=== PATIENT | female | born 1935 | race Caucasian/White ===

== ENCOUNTER 2016-05-14 23:49 | Observation (INO) ==
[2016-05-15] MEDS ORDERED: Acetaminophen 325 MG TABLET PO PRN (02:32)
[2016-05-15] MEDS ORDERED: Naloxone 0.4 MG/ML INJ IVP PRN (02:32)
[2016-05-15] MEDS ORDERED: *HR* Morphine 2 MG/ML SYRINGE IVP PRN (02:32)
[2016-05-15] MEDS ORDERED: Ondansetron 4 MG/2 ML VIAL IVP PRN (02:32)
[2016-05-15] MEDS ORDERED: Acetaminophen IV 1,000 MG/100 ML INFUS..BTL IVPB STA (02:42)
[2016-05-15] MEDS ORDERED: Ketorolac 15 MG/ML VIAL IVP STA (02:42)
--- NOTE | 2016-05-15 02:48 | Internal Med History&Physical ---
Date of Encounter: 05/15/16 Time of Encounter: 02:30 Assessment and Plan (1) Fall (on) (from) other stairs and steps, initial encounter Current visit: Yes Status: Acute . (2) Pelvis fracture Current visit: Yes Status: Acute . Qualifiers: Encounter type: initial encounter Pelvic bone location: unspecified part of pelvis Fracture type: closed Fracture alignment: nondisplaced Qualified Code(s): S32.9XXA - Fracture of unspecified parts of lumbosacral spine and pelvis, initial encounter for closed fracture Internal Medicine - H&P: HPI Chief complaint: Fall; pelvis fracture Admitted From: Hospital to Hospital Transfer (Hospital transfer: [facility] ED) Plans for Post Hospital Care: Home History of present illness: Ms. Alonzo is a 80 year old female with medical history noteworthy of hypertension, hypothyroidism, osteoarthritis, osteopenia, depression and anxiety , obesity, nonsmoker is admitted as a hospital transfer [facility] emergency department where she presented following a mechanical fall onto bottom step of metal bleachers landing on left hip against a railing with secondary nondisplaced pelvis fracture. The patient suffered no head or neck injury. There was no loss of consciousness. He misstepped landing onto her left hip. Immediately felt pain and discomfort to the left hip area. Described this as a sharp 10/10 severity. She was able to stand with assistance and weight-bear although uncomfortable and attempted ambulation and no pain while at rest. Screening studies included a negative routine urinalysis. White blood cell count 14 with increase in neutrophils. Hemoglobin 13.5 platelets 181,000. Vital signs Patient Afebrile at 97.2 Degrees Fahrenheit. Pulse Oximetry 97% on Room Air. BP 119-163/64-74 MmHg. Pulse 59-68. Respirations 16-20. BMI 30.47. Pelvis X-Ray Series Demonstrated Fractures of the Left Superior and Inferior Pelvic Ramus and Body. No Additional Fractures Identified. SI Joint Anatomically Aligned. Hip Joints Anatomically Aligned. Chondrocalcinosis Noted Involving the Symphysis and Left Hip Labrum. X-Ray Left Femur Demonstrated No Acute Osseous Abnormality or Dislocation. 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 Tricompartmental Osteoarthritis of the Knee. Orthopedic Surgery Notified by [facility] ED Attending of Transfer and Acceptance given. Workup and treatment will proceed comprehensively. The patient was visited and interviewed and examined. Cumulative laboratory and radiographic data base will be considered and discussed. Pertinent ancillary medical records including ECW and PCI documentation when available was reviewed and considered. Given the patient's presenting concerns, past medical history, clinical findings and symptoms, she is admitted at this time will undergo further evaluation and disposition. Orders were written as per Computerized physician manifest/order organizer print orders system.......................................................................... .................... Consultative opinion will be sought as clinical circumstances justify. Pain management needs will be addressed. Laboratory /radiographic data base will be updated as appropriate. Studies include: Cultures of urine, UA, pt/inr, aptt, cardiac injury panel, BNP, metabolic and hematologic panel, magnesium, phosphorus, ionized calcium, thyroid panel, lipid profile, A1c, C-peptide, CRP, sedimentation rate, blood gas , lactic acid, serologies, etc. Precautions: Aspiration, fall, delirium protocol/surveillance initiated. Telemetry with continuous hemodynamic monitoring and pulse oximetry initiated. Empiric antibiotic coverage: Intravenous Rocephin pending culture data. Special studies: chest x-ray, telemetry, EKG. Pulmonary toilet: Incentive spirometry. PRN: aerosol bronchodilator, mucolytic, antitussive, supplemental oxygen. Corticosteroid therapyPRN. CPAP/BiPAP supplemental oxygenPRN. Aerosol Mucomyst therapyPRN. Fluid and electrolyte repletion efforts will proceed. Careful attention to fluid balance and renal recovery will be emphasized. Avoidance of nephrotoxic exposure and adverse drug drug interaction in the setting of impaired renal function will be monitored closely. Acute coronary syndrome protocol/surveillance initiated. DVT and PUD prophylaxis initiated: PPI therapy, intermittent pneumatic cuffs. Subcutaneous heparin/Lovenox. Early ambulation will be encouraged. Immunization updates recommended. Influenza and pneumococcal vaccinations as part of ongoing preventative healthcare recommendations strongly recommended. Smoke cessation counseling briefly addressed. Patient is a nonsmoker. Advanced care directive discussion briefly addressed. Patient does not declare any healthcare restrictions at this time. Cardiovascular risk appraisal and cardiovascular risk reduction efforts will be emphasized. Physical /occupational therapy consulted to evaluate patient's functional capacity and progress mobility if her circumstances permit. Nutrition/dietary education counseling may be considered as circumstances justify. Outpatient medication schedules will be reviewed, confirmed and facilitated as appropriate. Reconciliation of home treatments including adjustments, substitutions and reintroduction into the treatment regimen will address necessary maintenance therapies for chronic pre-existing medical conditions. Plan of care has been reviewed and discussed in detail with the patient. Questions addressed. Hospital course dictated by clinical findings, treatment response and potential consultative interventions. Patient is a risk for further acute clinical decline due to her age, chief complaints and comorbid conditions. Condition is serious. Prognosis is guarded. CODE STATUS is full. Past Med Surg Social Fam HX - Past Medical History Source: old records reviewed Medical history: arthritis, hypertension, osteoporosis, thyroid disease, other Psychiatric history: no psych history - Past Surgical History Surgical History: appendectomy, cholecystectomy, hysterectomy, knee replacement , orthopedic, other (carpal tunnel repair.) - Social History Smoking Status: Never smoker Smokeless Tobacco Status: No Alcohol use: none Drug use: none Occupational status: retired Current living situation: Home, With Family Activity Level: Independent ambulation, Mostly sedentary Recent Out of Country Travel Within the Last 8 Weeks: No Exposure or Possible Exposure to Illness During Travel: No - Family History Sister Hx Family Cardiac Disorders: No Hx Family Respiratory Disorders: No Hx Family Cancer: Yes Hx Family GI Disorders: No Hx Family Genitourinary Disorders: No Hx Family Endocrine Disorder: No Hx Family Musculoskeletal Disorders: No Hx Family Neuromuscular Disorders: No Hx Family Neurologic Disorders: No Hx Family HEENT Disorders: No Hx Family Autoimmune Disorders: No Hx Family Reproductive Disorders: No Hx Family Psychosocial Disorders: No Hx Family Medical Disorders: No Internal Medicine - H&P: Meds Aspirin 325 mg PO DAILY 05/15/16 [History] Calcium Carbonate [Calcium] 600 mg PO DAILY 05/15/16 [History] Cholecalciferol (Vitamin D3) [Vitamin D] 1,000 unit PO 05/15/16 [History] Levothyroxine [Synthroid] 25 mcg PO DAILY 05/15/16 [History] Metoprolol [Lopressor] 12.5 mg PO BID 05/15/16 [History] Paroxetine HCl [Paxil] 20 mg PO DAILY 05/15/16 [History] Triamterene/HCTZ 75/50mg [Maxzide] 1 tab PO DAILY 05/15/16 [History] Allergies allopurinol Adverse Reaction (Verified 05/15/16 02:19) Hives azithromycin Adverse Reaction (Verified 05/15/16 02:19) Cramping of the Muscles All Systems PM: A 10-system review of systems was performed and is negative for pertinent findings except as documented above in the HPI. - Constitutional Constitutional: as per HPI, no chills, no fever(s), no night sweats - EENT Eyes: as per HPI, no change in vision, no discharge, no pain, no photophobia Ears: as per HPI, no ear discharge, no ear pain, no tinnitus Nose, mouth and throat: as per HPI, no dysphagia, no nasal discharge, no neck pain, no sore throat - Cardiovascular Cardiovascular ROS IM: as per HPI, no chest pain, no diaphoresis, no dyspnea, no lightheadedness, no palpitations, no syncope - Respiratory Respiratory: as per HPI, no cough, no dyspnea, no wheezing, no excessive phlegm production - Gastrointestinal Gastrointestinal: as per HPI, no abdominal pain, no diarrhea, no hematemesis, no hematochezia, no melena, no nausea, no vomiting - Genitourinary Genitourinary: as per HPI, no change in urinary stream, no dysuria, no flank pain, no hematuria - Musculoskeletal Musculoskeletal ROS IM: as per HPI, arthralgias, limited range of motion, other , no neck pain, no numbness, no tingling - Integumentary Integumentary IM: as per HPI, no rash, no unusual bruising - Neurological Neurological ROS: as per HPI, no confusion, no convulsions, no focal weakness, no numbness, no tingling, no tremor(s) - Psychiatric Psychiatric: as per HPI - Endocrine Endocrine IM: as per HPI - Hematologic/Lymphatic Hematologic/Lymphatic: as per HPI, no easy bruising - Allergic/Immunologic Allergic/Immunologic: as per HPI - Constitutional Vitals: Temp Pulse Resp BP Pulse Ox 98.0 F 60 17 125/71 95 05/15/16 01:53 05/15/16 01:53 05/15/16 01:53 05/15/16 01:53 05/15/16 01:53 Vital Signs Temp Pulse Resp BP Pulse Ox 05/15/16 01:53 98.0 F 60 17 125/71 95 Intake and Output 05/14/16 05/14/16 05/15/16 15:59 23:59 07:59 Other: Weight 77.111 kg Patient Weight 05/15/16 23:59 Weight 77.111 kg Allergies Allergy/AdvReac Type Severity Reaction Status Date / Time allopurinol AdvReac Hives Verified 05/15/16 02:19 azithromycin AdvReac Cramping Verified 05/15/16 02:19 of the Muscles General appearance: Present: cooperative, mild distress, A&O X 3, obese, answers questions appropriately - Head Head exam: Present: atraumatic, normocephalic - Eye Eye exam: Present: EOMI, PERRL, conjuntiva pink, sclera anicteric Pupils: Present: normal accommodation, PERRL - ENT ENT exam: Present: mucous membranes moist, normal oropharynx - Neck Neck exam general surgery: Present: full ROM, supple, trachea midline. Absent: lymphadenopathy - Respiratory Respiratory exam: Present: decreased breath sounds, CTAB. Absent: accessory muscle use, rales, rhonchi, wheezes - Cardiovascular Cardiovascular exam: Present: distant heart sounds, RRR, +S1, +S2. Absent: diastolic murmur, gallop, rubs, systolic murmur - GI/Abdominal GI/Abdominal exam: Present: normal bowel sounds, soft, no peritoneal signs. Absent: distended, tenderness - Extremities Exam Extremities exam: Present: warm, radial pulses palpable and symetrical. Absent : calf tenderness, cyanotic, full ROM, pedal edema - Expanded Lower Extremities Exam Hip exam: Present: pelvic stability, swelling, tenderness. Absent: full ROM Neuro vascular tendon exam: Present: no vascular compromise, significant pain with passive ROM of distal joint. Absent: motor deficit, pulse deficit, sensory deficit Gait: Present: not tested/not observed - Neurological Exam Neurological exam: Present: alert, CN II-XII intact, oriented X3, no focal deficits. Absent: pronater drift, facial droop, speech deficit - Psychiatric Psychiatric exam: Present: normal affect, normal mood - Skin Skin exam: Present: dry, intact, warm
[2016-05-15] MEDS: Ringers Solution, Lactated 1,000 ML IVC SCH ×2 (03:09→13:40)
[2016-05-15] MEDS ORDERED: Benzonatate 100 MG CAPSULE PO PRN (03:15)
[2016-05-15] MEDS ORDERED: Ipratropium/Albuterol Neb 3 ML IH PRN (03:15)
[2016-05-15] MEDS ORDERED: Chloraseptic Spray 177 ML BOTTLE MM PRN (03:15)
[2016-05-15] MEDS: *HR* Enoxaparin 40 MG/0.4 ML SYRINGE SQ SCH (06:16)
[2016-05-15 06:31] LABS: Basophils % 0.4 %; Eosinophils # 0.1 K/mcL (0.0-0.6); Eosinophils % 0.9 %; Hematocrit 35.3 % (35.3-44.9); Hemoglobin 12.2 g/dL (11.5-15.4); Immature Granulocytes % 0.5 % (0-4); Lymphocytes # 1.2 K/mcL (0.6-4.6); Lymphocytes % 14.9 %; Mean Corpuscular HGB Conc 34.6 g/dL (31.6-35.5); Mean Corpuscular Hemoglobin 32.4 pg (28.0-33.3); Mean Corpuscular Volume 93.9 fL (83.0-100.0); Mean Platelet Volume 11.8 fL (9.4-12.4); Monocytes # 0.7 K/mcL (0.0-1.3); Monocytes % 8.4 %; Neutrophils # 5.9 K/mcL (1.6-8.9); Platelet Count 176 K/mcL (140-400); Red Blood Count 3.76 M/mcL (3.82-4.97); Red Cell Distribution Width 12.7 % (11.5-14.5); Segmented Neutrophils % 74.9 %
[2016-05-15 06:37] LABS: INR 1.2; Prothrombin Time 13.4 Seconds (9.4-12.1)
[2016-05-15 06:39] LABS: Activated Partial Thrombo Time 31.7 Seconds (26.0-36.0)
[2016-05-15 06:48] LABS: Ionized Calcium 1.13 mmol/L (1.15-1.35); VBG HCO3 26.6 mEq/L (21-27); VBG PH 7.37 pH Units (7.32-7.42)
[2016-05-15 06:53] LABS: Hemoglobin A1C 5.4 %
[2016-05-15 06:54] LABS: Albumin 3.4 g/dL (3.5-5.0); Albumin/Globulin Ratio 1.1 (1.1-2.2); Bilirubin,Total 0.8 mg/dL (0.2-1.2); Calcium 8.9 mg/dL (8.6-10.8); Globulin 3.2 g/dL (2.4-3.5); Magnesium 1.9 mg/dL (1.6-2.6); Phosphorous 3.6 mg/dL (2.3-4.7); Potassium 3.7 mEq/L (3.5-4.5); Total Protein 6.6 g/dL (6.0-8.3); Uric Acid 8.9 mg/dL (2.6-6.0)
[2016-05-15 07:07] LABS: Thyroid Stimulating Hormone 4.482 mcIU/mL (0.350-4.840)
--- NOTE | 2016-05-15 07:59 | Orthopedic Consult Note ---
Date of Encounter: 05/15/16 Time of Encounter: 07:45 Assessment and Plan (1) Pelvis fracture Current Visit: Yes Status: Acute Patient is doing well; pain controlled in bed. Plan is to proceed with non-surgical management. She is WBAT with assistance. Will start PT/OT DVT prophylaxis with foot pumps. She has requested f/up in [facility] - set up appt and faxed to the floor 1 week f/up Continue with hip precautions; using walker Plan discussed and reviewed by . Qualifiers: Encounter type: initial encounter Pelvic bone location: pubis Fracture type: closed Fracture alignment: nondisplaced Laterality: left Qualified Code(s): S32.502A - Unspecified fracture of left pubis, initial encounter for closed fracture (2) Fall (on) (from) other stairs and steps, initial encounter Current Visit: Yes Status: Acute (3) Essential hypertension Current Visit: Yes Status: Chronic (4) Hypothyroidism Current Visit: Yes Status: Chronic Qualifiers: Hypothyroidism type: other Qualified Code(s): E03.8 - Other specified hypothyroidism (5) Chronic kidney disease, stage III (moderate) Current Visit: Yes Status: Suspected History of Present Illness Chief complaint: Fall - Pelvic Fracture HPI: Ms. Alonzo is a 80 year old female, medical history hypertension, hypothyroidism , osteoarthritis, osteopenia, depression and anxiety, obesity, nonsmoker is admitted as a hospital transfer [facility] She had a mechanical fall onto bottom step of metal bleachers landing on left hip against a railing - immediate hip pain, 10/10 She was able to WB, but with difficulty. No pain at rest. The patient suffered no head or neck injury. Denies loss of consciousness. Reviewed by : Pelvis X-Ray Series Demonstrated Fractures of the Left Superior and Inferior Pelvic Ramus and Body. No Additional Fractures Identified. SI Joint Anatomically Aligned. Hip Joints Anatomically Aligned. Chondrocalcinosis Noted Involving the Symphysis and Left Hip Labrum. X-Ray Left Femur Demonstrated No Acute Osseous Abnormality or Dislocation. 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 Tricompartmental Osteoarthritis of the Knee. Orthopedic Surgery Notified by [facility] Past Med Surg Social Fam HX - Past Medical History Medical history: arthritis, hypertension, osteoporosis, thyroid disease, other Psychiatric history: no psych history - Past Surgical History Surgical History: appendectomy, cholecystectomy, hysterectomy, knee replacement , orthopedic, other (carpal tunnel repair.) - Social History Smoking Status: Never smoker Smokeless Tobacco Status: No Alcohol use: none Drug use: none - Family History Sister Hx Family Cardiac Disorders: No Hx Family Respiratory Disorders: No Hx Family Cancer: Yes Hx Family GI Disorders: No Hx Family Genitourinary Disorders: No Hx Family Endocrine Disorder: No Hx Family Musculoskeletal Disorders: No Hx Family Neuromuscular Disorders: No Hx Family Neurologic Disorders: No Hx Family HEENT Disorders: No Hx Family Autoimmune Disorders: No Hx Family Reproductive Disorders: No Hx Family Psychosocial Disorders: No Hx Family Medical Disorders: No Medications and Allergies Aspirin 325 mg PO DAILY 05/15/16 [History] Calcium Carbonate [Calcium] 600 mg PO DAILY 05/15/16 [History] Cholecalciferol (Vitamin D3) [Vitamin D] 1,000 unit PO DAILY 05/15/16 [History] Levothyroxine [Synthroid] 25 mcg PO DAILY 05/15/16 [History] Metoprolol [Lopressor] 12.5 mg PO BID 05/15/16 [History] Paroxetine HCl [Paxil] 20 mg PO DAILY 05/15/16 [History] Triamterene/HCTZ 75/50mg [Maxzide] 0.5 tab PO DAILY 05/15/16 [History] Allergies allopurinol Adverse Reaction (Verified 05/15/16 07:46) Hives azithromycin Adverse Reaction (Verified 05/15/16 07:46) Cramping of the Muscles All Systems Reviewed: A 10-system review of systems was performed and is negative for pertinent findings except as documented above in the HPI. - Constitutional Constitutional: as per HPI - Cardiovascular Cardiovascular: no chest pain, no syncope - Respiratory Respiratory: no cough - Musculoskeletal Musculoskeletal: as per HPI, radiating pain into limb, no abnormal gait, no numbness, no tingling Physical Exam - Constitutional Vitals: Temp Pulse Resp BP Pulse Ox 98.3 F 64 16 128/73 95 05/15/16 06:32 05/15/16 06:32 05/15/16 06:32 05/15/16 06:32 05/15/16 06:32 - Fracture pelvis Appearance: normal Compartments: soft Distal extremity neurovascularly intact: Yes Proximal joint involvement: No Distal joint involvement: No Other injury: muscle injury: no, tendon injury: no, ligament injury: no, vascular injury: no, nerve injury: no Results - Labs Result Diagrams: 05/15/16 06:15 05/15/16 06:15 Labs: Abnormal lab results RBC 3.76 M/mcL (3.82-4.97) L 05/15/16 06:15 PT 13.4 Seconds (9.4-12.1) H 05/15/16 06:15 VBG pO2 77 mmHg (25-40) H 05/15/16 06:15 Sodium 135 mEq/L (136-145) L 05/15/16 06:15 BUN 39 mg/dL (7-20) H 05/15/16 06:15 Creatinine 1.42 mg/dL (0.57-1.11) H 05/15/16 06:15 Est GFR ( Amer) 43 (> 60) L 05/15/16 06:15 Est GFR (Non-Af Amer) 36 (> 60) L 05/15/16 06:15 BUN/Creatinine Ratio 27 (6-26) H 05/15/16 06:15 Glucose 112 mg/dL (70-99) H 05/15/16 06:15 Uric Acid 8.9 mg/dL (2.6-6.0) H 05/15/16 06:15 Ionized Calcium 1.13 mmol/L (1.15-1.35) L 05/15/16 06:15 B-Natriuretic Peptide 264 pg/mL (0-100) H 05/15/16 06:15 Albumin 3.4 g/dL (3.5-5.0) L 05/15/16 06:15 H & H 05/15/16 Range/Units 06:15 Hgb 12.2 (11.5-15.4) g/dL Hct 35.3 (35.3-44.9) % All other labs normal. - Diagnostic results Pelvic AP x-ray: report reviewed, image reviewed (By ) Consult Discharge Plan - Plan Referrals: NO,PCP [Primary Care Provider] -
[2016-05-15] MEDS: Levothyroxine 25 MCG TABLET PO SCH (09:51)
[2016-05-15] MEDS: Aspirin 325 MG TABLET PO SCH (09:51)
[2016-05-15] MEDS: *HR* OxyCODONE Immed Rel 5 MG TABLET PO PRN (14:34)
--- NOTE | 2016-05-15 15:37 | Internal Med Progress Note ---
Date of Encounter: 05/15/16 Time of Encounter: 10:25 - Assessment and plan (1) Pelvis fracture Current Visit: Yes Status: Acute Assessment and plan: Status post fracture of the left superior and inferior apical trauma from body. Supportive care. Physical therapy. Orthopedic evaluation. Pain control. Moderate risk for complications. Qualifiers: Encounter type: initial encounter Pelvic bone location: pubis Fracture type: closed Fracture alignment: nondisplaced Laterality: left Qualified Code(s): S32.502A - Unspecified fracture of left pubis, initial encounter for closed fracture (2) Essential hypertension Current Visit: Yes Status: Chronic Assessment and plan: Blood pressure is well controlled. Continue metoprolol. (3) Hypothyroidism Current Visit: Yes Status: Chronic Assessment and plan: Continue levothyroxine. Qualifiers: Hypothyroidism type: other Qualified Code(s): E03.8 - Other specified hypothyroidism (4) Chronic kidney disease, stage III (moderate) Current Visit: Yes Status: Suspected Assessment and plan: Patient has elevated BUN and creatinine. Likely has underlying chronic kidney disease. Will gently hydrate and follow renal function closely. Avoid nephrotoxic agents. - Subjective Interval history: Patient is comfortable. Pain is well controlled. Received physical therapy this morning. - Constitutional Vitals: Temp Pulse Resp BP Pulse Ox 97.8 F 73 16 114/63 94 L 05/15/16 14:26 05/15/16 14:26 05/15/16 14:26 05/15/16 14:26 05/15/16 14:26 General appearance: Present: cooperative, mild distress, A&O X 3, obese, answers questions appropriately - Respiratory Respiratory exam: Present: CTAB. Absent: accessory muscle use, rales, rhonchi, wheezes - Cardiovascular Cardiovascular exam: Present: RRR, +S1, +S2. Absent: diastolic murmur, gallop, rubs, systolic murmur - GI/Abdominal GI/Abdominal exam: Present: normal bowel sounds, soft, no peritoneal signs. Absent: distended, tenderness - Extremities Exam Extremities exam: Present: warm, radial pulses palpable and symetrical. Absent : calf tenderness, cyanotic, pedal edema - Neurological Exam Neurological exam: Present: alert, oriented X3, no focal deficits. Absent: facial droop, speech deficit Internal Medicine: Result - Labs CBC & Chem 7: 05/15/16 06:15 05/15/16 06:15 Labs: Short CBC 05/15/16 Range/Units 06:15 WBC 7.9 (4.3-11.1) K/mcL Hgb 12.2 (11.5-15.4) g/dL Hct 35.3 (35.3-44.9) % Plt Count 176 (140-400) K/mcL Neutrophils # 5.9 (1.6-8.9) K/mcL BMP 05/15/16 06:15 Sodium 135 L Potassium 3.7 Chloride 102 Carbon Dioxide 22 BUN 39 H Creatinine 1.42 H Glucose 112 H Calcium 8.9 Cardiac Enzymes 05/15/16 Range/Units 06:15 Troponin I 0.00 (0-0.03) ng/mL Liver Function 05/15/16 Range/Units 06:15 Total Bilirubin 0.8 (0.2-1.2) mg/dL AST 27 (5-34) Units/L ALT 11 (0-55) Units/L Alkaline Phosphatase 41 (38-126) Units/L Albumin 3.4 L (3.5-5.0) g/dL - ABG Interpretation ABG results: PT/INR, D-dimer PT 13.4 Seconds (9.4-12.1) H 05/15/16 06:15 - Impressions Impressions Chest X-Ray 05/15/16 02:32 IMPRESSION: 1. No active pulmonary disease. 2. Cardiomegaly without overt failure. D/ / Dung Will MD / Dung Will MD Interpreting Provider: Dung Will MD - VTE Documentation of Mechanical Device: Intermittent pneumatic compression device Consult Discharge Plan - Plan Referrals: NO,PCP [Primary Care Provider] - - Attending Attestation This document has been at least partially created by Vok[employer] recognition technology by Dr. Foley. Errors in grammar, wording or other phrases may exist. If errors are found after the documentation is signed, they will be addressed individually in the addendum section of this document when appropriate.
[2016-05-15] MEDS ORDERED: 0.9 % Sodium Chloride 1,000 ML IVC SCH (15:45)
--- NOTE | 2016-05-15 20:01 | Electrocardiograph Report ---
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 : 1935 Requested By: Victor Hugo Anand Order Number: [id number] Reading MD: Jatinder Gomez MD Measurements Intervals [place] Rate: 67 P: 75 CT: 215 QRS: 1 QRSD: 94 T: 66 QT: 400 QTc: 415 Interpretive Statements SINUS RHYTHM WITH FIRST DEGREE AV BLOCK OCCASIONAL VENTRICULAR PREMATURE COMPLEXES OCCASIONAL SUPRAVENTRICULAR PREMATURE COMPLEXES NONSPECIFIC ST \T\ T WAVE ABNORMALITY Electronically Signed On 05-15-2016 19:59:35 EDT by Jatinder Gomez MD
[2016-05-16] MEDS: *HR* Enoxaparin 40 MG/0.4 ML SYRINGE SQ SCH (05:14)
[2016-05-16] MEDS: *HR* OxyCODONE Immed Rel 5 MG TABLET PO PRN (05:14)
[2016-05-16 06:59] LABS: Basophils % 0.8 %; Eosinophils # 0.2 K/mcL (0.0-0.6); Hematocrit 32.3 % (35.3-44.9); Immature Granulocytes % 0.2 % (0-4); Lymphocytes # 0.9 K/mcL (0.6-4.6); Lymphocytes % 17.9 %; Mean Corpuscular HGB Conc 34.1 g/dL (31.6-35.5); Mean Corpuscular Hemoglobin 32.4 pg (28.0-33.3); Mean Platelet Volume 12.2 fL (9.4-12.4); Monocytes # 0.5 K/mcL (0.0-1.3); Monocytes % 9.3 %; Neutrophils # 3.4 K/mcL (1.6-8.9); Platelet Count 146 K/mcL (140-400); Segmented Neutrophils % 67.8 %
[2016-05-16 07:09] LABS: Calcium 8.2 mg/dL (8.6-10.8); Potassium 3.6 mEq/L (3.5-4.5)
--- NOTE | 2016-05-16 08:11 | Orthopedics Progress Note ---
Date of Encounter: 05/16/16 Time of Encounter: 08:10 - Assessment and Plan (1) Pelvis fracture Current Visit: Yes Status: Acute Patient is doing well; pain controlled Plan is to proceed continue with non-surgical management. She is WBAT with assistance. Will continue PT/OT DVT prophylaxis with foot pumps. She has requested f/up in [facility] - set up appt and faxed to the floor 1 week f/up Continue with hip precautions; using walker Plan to D/C today or tomorrow to home health. She has requested f/up in [facility] - set up appt and faxed to the floor 1 week f/up. Orthopedics signing off. Plan discussed and reviewed by . Qualifiers: Encounter type: initial encounter Pelvic bone location: pubis Fracture type: closed Fracture alignment: nondisplaced Laterality: left Qualified Code(s): S32.502A - Unspecified fracture of left pubis, initial encounter for closed fracture (2) Fall (on) (from) other stairs and steps, initial encounter Current Visit: Yes Status: Acute (3) Essential hypertension Current Visit: Yes Status: Chronic (4) Hypothyroidism Current Visit: Yes Status: Chronic Qualifiers: Hypothyroidism type: other Qualified Code(s): E03.8 - Other specified hypothyroidism (5) Chronic kidney disease, stage III (moderate) Current Visit: Yes Status: Suspected Subjective Principal diagnosis: Fall - Pelvic Fracture Interval history: Patient is doing well, sitting in chair. A&O x 3. Pain controlled with pain medication. PT/OT have worked with her on ambulation using a walker. Lower extremities: No swellling, no erythema or ecchymosis. No warmth or pain. Calves non-tender. NV intact distally. Objective Vital signs: Vital Signs Temp Pulse Resp BP Pulse Ox 05/16/16 06:50 98.3 F 70 18 98/64 93 L 05/16/16 04:00 98.3 F 74 16 143/73 93 L 05/16/16 00:00 98.4 F 75 17 146/75 92 L 05/15/16 20:00 98.0 F 66 17 143/86 96 05/15/16 14:26 97.8 F 73 16 114/63 94 L 05/15/16 10:39 97.9 F 65 16 111/68 93 L Intake and Output 05/15/16 05/16/16 05/16/16 23:59 07:59 15:59 Intake Total 850 / 850 1000 / 1000 Output Total 450 / 450 Balance 400 / 400 1000 / 1000 Intake: IV Fluids 500 / 500 1000 / 1000 0.9 % Sodium Chloride 1, 1000 / 1000 000 ML @ 100 mls/hr IVC . Q10H [facility] Rx#:[id number] Lactated Ringers 1,000 ML 500 / 500 @ 100 mls/hr IVC .Q10H TYE Rx#:[id number] Oral 350 / 350 Output: Urine 450 / 450 Other: Weight 77.4 kg Patient Weight 05/16/16 23:59 Weight 77.4 kg - Labs CBC & BMP: 05/16/16 06:27 05/16/16 06:27 Labs: Abnormal lab results RBC 3.40 M/mcL (3.82-4.97) L 05/16/16 06:27 Hgb 11.0 g/dL (11.5-15.4) L 05/16/16 06:27 Hct 32.3 % (35.3-44.9) L 05/16/16 06:27 PT 13.4 Seconds (9.4-12.1) H 05/15/16 06:15 VBG pO2 77 mmHg (25-40) H 05/15/16 06:15 Sodium 133 mEq/L (136-145) L 05/16/16 06:27 BUN 29 mg/dL (7-20) H D 05/16/16 06:27 Creatinine 1.21 mg/dL (0.57-1.11) H 05/16/16 06:27 Est GFR ( Amer) 52 (> 60) L 05/16/16 06:27 Est GFR (Non-Af Amer) 43 (> 60) L 05/16/16 06:27 Uric Acid 8.9 mg/dL (2.6-6.0) H 05/15/16 06:15 Calcium 8.2 mg/dL (8.6-10.8) L 05/16/16 06:27 Ionized Calcium 1.13 mmol/L (1.15-1.35) L 05/15/16 06:15 B-Natriuretic Peptide 264 pg/mL (0-100) H 03/30/17 06:15 Albumin 3.4 g/dL (3.5-5.0) L 05/15/16 06:15 - VTE Documentation of Mechanical Device: Intermittent pneumatic compression device Consult Discharge Plan - Plan Referrals: NO,PCP [Primary Care Provider] - (With orthopedics in one week) Prescriptions: Docusate [Colace] 100 mg PO BID PRN #20 capsule PRN Reason: Constipation Oxycodone HCl/Acetaminophen [Percocet 7.5-325 mg Tablet] 1 each PO Q6H PRN #20 tablet PRN Reason: Moderate to severe pain
[2016-05-16] MEDS: Aspirin 325 MG TABLET PO SCH (08:29)
[2016-05-16] MEDS: Levothyroxine 25 MCG TABLET PO SCH (08:29)
[2016-05-16 10:50] VITALS: BP 111/69
--- NOTE | 2016-05-16 13:17 | Discharge Summary ---
Date of Encounter: 05/16/16 Time of Encounter: 11:25 - Discharge Diagnosis (1) Pelvis fracture Priority: Primary Status: Acute Qualifiers: Encounter type: initial encounter Pelvic bone location: pubis Fracture type: closed Fracture alignment: nondisplaced Laterality: left Qualified Code(s): S32.502A - Unspecified fracture of left pubis, initial encounter for closed fracture (2) Essential hypertension Priority: Secondary Status: Chronic (3) Hypothyroidism Priority: Secondary Status: Chronic Qualifiers: Hypothyroidism type: other Qualified Code(s): E03.8 - Other specified hypothyroidism (4) Chronic kidney disease, stage III (moderate) Priority: Secondary Status: Suspected - Discharge Medications Prescriptions: Docusate [Colace] 100 mg PO BID PRN #20 capsule PRN Reason: Constipation Oxycodone HCl/Acetaminophen [Percocet 7.5-325 mg Tablet] 1 each PO Q6H PRN #20 tablet PRN Reason: Moderate to severe pain Home Medications: Aspirin 325 mg PO DAILY 05/15/16 [History] Calcium Carbonate [Calcium] 600 mg PO DAILY 05/15/16 [History] Cholecalciferol (Vitamin D3) [Vitamin D3] 1,000 unit PO DAILY 05/15/16 [History] Levothyroxine [Synthroid] 25 mcg PO DAILY 05/15/16 [History] Metoprolol [Lopressor] 12.5 mg PO BID 05/15/16 [History] Paroxetine HCl [Paxil] 20 mg PO DAILY 05/15/16 [History] Triamterene/HCTZ 75/50mg [Maxzide] 0.5 tab PO DAILY 05/15/16 [History] Docusate [Colace] 100 mg PO BID PRN #20 capsule 05/16/16 [Rx] Oxycodone HCl/Acetaminophen [Percocet 7.5-325 mg Tablet] 1 each PO Q6H PRN #20 tablet 05/16/16 [Rx] Allergies/Adverse Reactions: Allergies allopurinol Adverse Reaction (Verified 05/15/16 07:46) Hives azithromycin Adverse Reaction (Verified 05/15/16 07:46) Cramping of the Muscles Procedures/tests Complete & Pending: Procedures Performed prior 72 hours Category Date Time Status ECG 12 lead ECG [ECG] Stat Y 05/15/16 02:32 Completed Date of admission: 05/15/16 01:46 Primary care physician: PCP NO Consults: 05/15/16 02:39 Consult to Occupational Therapy [CONS] Routine Comment: Evaluate, develop and implement POC Consult to Physical Therapy [CONS] Routine Comment: Evaluate, develop and implement POC 05/15/16 08:00 Consult to Physician [CONS] Routine Consulting Provider: Jacob Jurado Reason for Consult: Mechanical fall w/ nobdisplaced pelvis fracture. Time Notified: 02:39 Call Completed: Yes 05/15/16 13:17 Consult to [employer] [CONS] Routine Reason for SW Consult: discharge planning Discharging clinician: Ermelinda Foley Anticipated date of discharge: 05/16/16 - Patient Status Disposition: Home Health Service Condition: Fair Functional capacity at discharge: uses cane/walker Overall status at discharge: patient is progressing back to baseline - Discharge Instructions Instructions: Pelvic Fracture (DC) Follow Up With: HODAN,PCP [Primary Care Provider] - (With orthopedics in one week) Ginette Brantley MD [Partnered Physician] - (May 26 at 9:30am) - Diet and Activity Activity: as per physical therapy Diet: low fat, low cholesterol, low salt diet Hospital course: Ms. Alonzo is a 80 year old female patient with a history of hypothyroidism, hypertension, osteoporosis was hospitalized here following a pelvic fracture after a mechanical fall. Patient has been doing well since then. She received physical therapy and her pain has been well controlled. She is has been recommended home health and physical therapy and this will be arranged. Clinically, the patient is stable to be discharged home and will follow up with orthopedics after discharge. - Time Spent with Patient Total time spent providing and/or coordinating discharge services: Greater than 30 minutes (40 min) - Constitutional Vitals: Temp Pulse Resp BP Pulse Ox 97.9 F 66 18 111/69 93 05/16/16 10:48 05/16/16 10:48 05/16/16 10:48 05/16/16 10:48 05/16/16 10:48 General appearance: Present: cooperative, A&O X 3, no acute distress, obese, answers questions appropriately - Respiratory Respiratory exam: Present: CTAB. Absent: accessory muscle use, rales, rhonchi, wheezes - Cardiovascular Cardiovascular exam: Present: RRR, +S1, +S2. Absent: diastolic murmur, gallop, rubs, systolic murmur - GI/Abdominal GI/Abdominal exam: Present: normal bowel sounds, soft, no peritoneal signs. Absent: distended, tenderness - Extremities Exam Extremities exam: Present: warm, radial pulses palpable and symetrical. Absent : calf tenderness, cyanotic, pedal edema - Neurological Exam Neurological exam: Present: alert, oriented X3, no focal deficits. Absent: facial droop, speech deficit - VTE Documentation of Mechanical Device: Intermittent pneumatic compression device - Attending Attestation This document has been at least partially created by [employer] recognition technology by Dr. Foley. Errors in grammar, wording or other phrases may exist. If errors are found after the documentation is signed, they will be addressed individually in the addendum section of this document when appropriate.
--- NOTE | 2016-05-16 13:22 | Physician Discharge Referral ---
Home Health/Hosp Referral Info Transfer to: Home Health Provider in Charge Post Discharge: PCP - Diagnosis (1) Pelvis fracture Priority: Primary Status: Acute (2) Essential hypertension Priority: Secondary Status: Chronic (3) Hypothyroidism Priority: Secondary Status: Chronic (4) Chronic kidney disease, stage III (moderate) Priority: Secondary Status: Suspected - Diet/Nutrition Diet/Nutrition Orders: Cardiac - Activity Activity Orders: Walker - Services Needed Following services are medically necessary services: Nursing, Physical Therapy, Occupational Therapy - Transfer Medications Prescriptions: Docusate [Colace] 100 mg PO BID PRN #20 capsule PRN Reason: Constipation Oxycodone HCl/Acetaminophen [Percocet 7.5-325 mg Tablet] 1 each PO Q6H PRN #20 tablet PRN Reason: Moderate to severe pain Home Medications: Aspirin 325 mg PO DAILY 05/15/16 [History] Calcium Carbonate [Calcium] 600 mg PO DAILY 05/15/16 [History] Cholecalciferol (Vitamin D3) [Vitamin D3] 1,000 unit PO DAILY 05/15/16 [History] Levothyroxine [Synthroid] 25 mcg PO DAILY 05/15/16 [History] Metoprolol [Lopressor] 12.5 mg PO BID 05/15/16 [History] Paroxetine HCl [Paxil] 20 mg PO DAILY 05/15/16 [History] Triamterene/HCTZ 75/50mg [Maxzide] 0.5 tab PO DAILY 05/15/16 [History] Docusate [Colace] 100 mg PO BID PRN #20 capsule 05/16/16 [Rx] Oxycodone HCl/Acetaminophen [Percocet 7.5-325 mg Tablet] 1 each PO Q6H PRN #20 tablet 05/16/16 [Rx] Allergies/Adverse Reactions: Allergies allopurinol Adverse Reaction (Verified 05/15/16 07:46) Hives azithromycin Adverse Reaction (Verified 05/15/16 07:46) Cramping of the Muscles Certification: Further, I certify that my clinical findings support that this patient is homebound (i.e. absences from home require considerable and taxing effort and are for medical reasons or shinto services or infrequently or short duration when for other reasons) because: Homebound Reason: Patient requires assistance of a person or device to safely leave home Attestation: My signature below is to certify that this patient is under my care and that I, or nurse practitioner, or a physician's personnel security assistant working with me, has a face-to -face encounter with this patient.
[2016-05-17] MEDS ORDERED: *HR* Enoxaparin 30 MG/0.3 ML SYRINGE SQ SCH (06:00)
== END 2016-05-16 16:27 | disposition home health service (06) ==
LOC: 3NENU
PROVIDERS: ADMIT Internal Medicine; ATTEND Internal Medicine